=== PATIENT | female | born 1945 | race Caucasian/White ===

== ENCOUNTER → 2017-01-13 | Outpatient (CLI) | payer OTHER, BC ==
[~2017-01-13] MED LIST: ARTISOL12 OPR
--- NOTE | 2017-01-13 15:33 | MAMMOGRAPHY REPORT ---
BILATERAL DIGITAL SCREENING MAMMOGRAM WITH CAD: 01/13/2017 CLINICAL HISTORY: Routine screening. Patient has no complaints. TECHNIQUE: Bilateral CC and MLO views were obtained. Current study was also evaluated with a Comput er Aided Detection (CAD) system. COMPARISON: Comparison is made to exams dated: 12/23/2015 mammogram, 01/13/2011 mammogram, 01/20/2011 ma mmogram - [facility], and 11/18/2007 mammogram - [facility]. BREAST COMPOSITION: There are scattered areas of fibroglandular density in both breasts. FINDINGS: There are stable benign-appearing calcifications within the right breast. No new suspici ous mass, architectural distortion or cluster of suspicious microcalcifications is seen. IMPRESSION: ACR BI-RADS CATEGORY 1: NEGATIVE There is no mammographic evidence of malignancy. A 1 year screening mammogram is recommended. The p atient will receive written notification of the results. Approximately 10% of breast cancers are not detected with mammography. A negative mammographic repor t should not delay biopsy if a clinically suggestive mass is present. Elida Cruz M.D. ay/:01/13/2017 14:51:06 Internal Consultant: Hema Garcia RT(R)(M), [facility] letter sent: Normal 1/2 BI-RADS Code: ACR BI-RADS Category 1: Negative
== END | disposition home or self-care (01) ==
LOC: C.MAMM 13:49
PROVIDERS: ATTEND Family Medicine
DX: Z12.31 Encounter for screening mammogram for malignant neoplasm of breast (principal)

== ENCOUNTER → 2018-03-15 | Outpatient (CLI) | payer OTHER, BC ==
--- NOTE | 2018-03-16 15:30 | MAMMOGRAPHY REPORT ---
BILATERAL DIGITAL SCREENING MAMMOGRAM TOMOSYNTHESIS WITH CAD: 03/15/2018 CLINICAL HISTORY: Routine screening. Patient has no complaints. TECHNIQUE: Breast tomosynthesis in addition to standard 2D mammography was performed. Current study was also evaluated with a Computer Aided Detection (CAD) system. COMPARISON: Comparison is made to exams dated: 01/13/2017 mammogram, 12/23/2015 mammogram, 01/20/2011 [facility] mogram, 01/13/2011 mammogram - [facility], and 11/18/2007 mammogram - [facility] Daniela Harris. BREAST COMPOSITION: There are scattered areas of fibroglandular density in both breasts. FINDINGS: The parenchymal pattern is unchanged. No developing mass, architectural distortion or clus ter of suspicious microcalcifications is seen in either breast. IMPRESSION: ACR BI-RADS CATEGORY 2: BENIGN There is no mammographic evidence of malignancy. A 1 year screening mammogram is recommended. The pa tient will receive written notification of the results. Approximately 10% of breast cancers are not detected with mammography. A negative mammographic report should not delay biopsy if a clinically suggestive mass is present. Elida Cruz M.D. ay/:03/15/2018 14:41:25 Sheep Farm Manager: Michelle BELL(Marly)(Samara), [facility] letter sent: Normal 1/2 BI-RADS Code: ACR BI-RADS Category 2: Benign
== END | disposition home or self-care (01) ==
LOC: C.MAMM 14:07
PROVIDERS: ATTEND Physician Assistant
DX: Z12.31 Encounter for screening mammogram for malignant neoplasm of breast (principal); M81.0 Age-related osteoporosis without current pathological fracture; M85.851 Other specified disorders of bone density and structure, right thigh

== ENCOUNTER 2022-05-04 11:14 | Observation (INO) ==
--- NOTE | 2022-05-04 11:25 | Emergency Department Note ---
Impression & Plan Lateral rectus palsy, Diplopia ED Provider Note NAME: REX HERRERA AGE: 76 SEX: F : 1945 ARRIVES VIA: Walk-In INFORMANT: [Patient][, ] ED PROVIDER(S): [Keven Garcia MD] Chief Complaint: Double vision HPI: Presents due to concern for double vision which she noticed yesterday. The patient believes that it is a horizontal diplopia cytocide images when looking to the right but is not apparent when looking to the left. Patient has any fevers or chills. The patient had mentioned in triage an occasional headache but states that this is not atypical or abnormal. The patient has no headache at this time. The patient denies any strokelike symptoms including numbness tingling focal weakness slurred speech facial droop or otherwise. The patient does have a prior history of cataract lens replacement. The patient is not seen the doll dresser in several years. Patient did not notice improvement in symptoms over the last day and thus presented here for further evaluation treatment. The patient denies any eye pain. The patient denies any blurry vision. Patient Nuys any fevers chills chest pains shortness of breath nausea or vomiting. ROS: See HPI for pertinent positives and negatives. A total of 10 systems were reviewed and otherwise negative. Past medical history: See below Surgical history: See below Social history: See below Physical Exam: GENERAL: NAD, [wearing a mask,] non-toxic. EYE EXAM: Normal conjunctiva. PERRL, no anisocoria and EOM's grossly intact w/o pain. Initially a very subtle right lateral gaze palsy, diplopia that is horizontal in nature when only looking to the right but disappears as she moves left of the midline, no obvious proptosis or periorbital edema, no hyphema or hypopyon. 20/70 vision in the left, 20/25 vision in the right. NECK: Supple, no nuchal rigidity, no adenopathy, non-tender. No signs of meningismus. LUNGS: Clear to auscultation. Normal chest wall mechanics. HEART: NSR, no MRG. ABDOMEN: Abdomen soft, non-tender, normo-active bowel sounds, no masses, no rebound or guarding. BACK: No CVA TTP. SKIN: No rashes and no bruising. UPPER EXTREMITIES: Upper extremities are grossly normal. LOWER EXTREMITIES: Grossly normal, no edema. NEURO EXAM: A&O x3, cranial nerves II-XII grossly intact, normal speech, moves all 4 extremities on command w/o issue. Differential diagnoses: Infection, dehydration, metabolic abnormality, hypo/h yperglycemia, electrolyte disturbance, anemia, hypoxia, cardiac sources, intracerebral event, toxicologic, neurologic, as well as other pathologies. Course: Patient was seen and evaluated the bedside. Full history physical exam was performed. [EKG interpreted by me] Normal sinus rhythm, rate of 74, normal intervals, normal axis, T wave version lead III. No A. fib. Imaging Studies: See Below [Cardiac monitoring: An order was placed for continuous cardiac monitoring. The monitor shows a rate of 82 with sinus rhythm.] MDM: Patient was seen due to concern for double vision. Blood work is obtained along with CT head and CT angiography head neck. Patient's blood work shows a normal white count H&H and platelet count. The patient's kidney function is unremarkable. Patient's LFTs are unremarkable. EKG with no obvious signs of arrhythmia. CT head and CT angiography of head and neck are negative. I did speak with the on-call neurologist Dr. Quach who recommended aspirin MRI brain and admission for stroke rule out. I did speak the on-call hospitalist PEEWEE Urrutia and the patient was admitted by Dr. Zhang. Past Med/Surg History Medical History Ricks's palsy History of basal cell carcinoma Osteoporosis declines Rx Surgical History H/O total knee replacement H/O tubal ligation History of cataract surgery History of wisdom tooth extraction S/P Mohs surgery for basal cell carcinoma Family History Father Diabetes Lung disease Prostate cancer Mother Gallbladder disease Denies family history of Ovarian cancer Myocardial infarction Breast cancer Colorectal cancer Social History Smoking Status: Never smoker Second Hand Exposure: No; Hx Alcohol Use: Yes Alcohol type: hard liquor Alcohol Intake Frequency: Monthly or Less Hx Substance Use: No Preferred Language: Eritrean Communication Ability: Effective Visual Impairment: No Limitations Hearing Ability: Normal Tower Control Operator Required: No marital status: Single Current Living Situation: Alone current occupational status: retired current occupation: radiography technician. Feels Safe at Home: Yes Childhood Exposure to Second-Hand Smoke: Yes caffeine: Yes (1/2 cup in AM) during the past year weight has: remained stable Dental Care, Regularly: Yes Physical Activity Frequency: Daily Physical Activity Frequency Comment: farm work Seatbelt Use: never Sunscreen Use: No Allergies Allergies Allergy/AdvReac Type Severity Reaction Status Date / Time No Known Allergies Allergy Verified 04/07/22 08:20 Home Meds Home Medications Medication Instructions Recorded Confirmed cholecalciferol (vitamin D3) 50 2,000 units PO DAILY 09/04/19 04/07/22 mcg (2,000 unit) capsule Results & Data (ED) Vital Signs Vital Signs - 24 hr 05/04/22 11:16 05/04/22 11:36 05/04/22 13:14 Temperature 36.1 C L Temperature Source Temporal Artery Scan Pulse Rate 77 Pulse Rate [Finger] 78 76 Respiratory Rate 18 18 19 Respiratory Effort / Characteristics Non-Labored Respiratory Depth Normal Blood Pressure 191/111 H Blood Pressure [Left Arm] 177/107 H 183/109 H Blood Pressure Mean 137 Blood Pressure Mean [Left Arm] 130 133 Pulse Oximetry 97 99 97 Oxygen Delivery Method Room Air Room Air Room Air Sepsis Recent Fever Within 48 Hours No Sepsis New/Unexplained Change in Mental Status No Sepsis Action Taken by Nursing No Action Required 05/04/22 14:00 Temperature Temperature Source Pulse Rate Pulse Rate [Finger] 64 Respiratory Rate 17 Respiratory Effort / Characteristics Respiratory Depth Blood Pressure Blood Pressure [Left Arm] 179/87 H Blood Pressure Mean Blood Pressure Mean [Left Arm] 117 Pulse Oximetry 99 Oxygen Delivery Method Sepsis Recent Fever Within 48 Hours Sepsis New/Unexplained Change in Mental Status Sepsis Action Taken by [facility] Medications Current Medication List: was personally reviewed by me Laboratory Data Attestation: I reviewed the patient's lab results. Result diagrams: 05/04/22 11:33 05/04/22 11:33 Lab Results 05/04/22 05/04/22 05/04/22 Range/Units 11:33 11:33 11:33 WBC 6.75 (4.8-10.8) K/uL RBC 4.87 (4.2-5.4) M/uL Hgb 13.3 (12.0-16.0) g/dL Hct 40.9 (37-47) % MCV 84.0 (80-100) fL MCH 27.3 (25-34) pg MCHC 32.5 (32-36) g/dL RDW Std Deviation 52.5 H (36.4-46.3) fL RDW Coeff of Vickie 16.9 H (11.5-14.5) % Plt Count 295 (130-400) K/uL MPV 9.6 (7.4-10.4) fL Immature Gran % (Auto) 0.3 % Neut % (Auto) 65.8 % Lymph % (Auto) 27.4 % Schuyler % (Auto) 5.9 % Eos % (Auto) 0.6 % Baso % (Auto) 0.0 % Neut # (Auto) 4.44 (1.4-6.5) K/uL Lymph # (Auto) 1.85 (1.2-3.4) K/uL Schuyler # (Auto) 0.40 (0.11-0.59) K/uL Eos # (Auto) 0.04 (0-0.5) K/uL Baso # (Auto) 0.00 (0-0.2) K/uL Immature Gran # (Auto) 0.02 (0.00-0.02) K/uL APTT 26.0 (21.0-31.0) Seconds PTT Ratio 0.9 Sodium 136 (136-145) mmol/L Potassium 4.1 (3.5-5.1) mmol/L Chloride 105 (98-107) mmol/L Carbon Dioxide 25 (21-32) mmol/L Anion Gap 6 (3-11) BUN 20 (6-23) mg/dl Creatinine 1.01 (0.6-1.2) mg/dl Est Cr Clr Drug Dosing 45.9 ml/min Est GFR ( Amer) 63.1 ml/min Est GFR (Non-Af Amer) 54.4 ml/min BUN/Creatinine Ratio 19.8 (10-20) Glucose 99 (70-99(Fasting)) mg/dl Calcium 9.6 (8.5-10.1) mg/dl Magnesium 2.0 (1.7-2.4) mg/dl Total Bilirubin 0.9 (0.2-1.0) mg/dl AST 13 (13-39) U/L ALT 9 (7-52) U/L Alkaline Phosphatase 65 (34-104) U/L Troponin I High Sens 3.4 (0-14) pg/ml Total Protein 7.2 (6.0-8.3) gm/dl Albumin 4.1 (3.4-5.0) gm/dl Globulin 3.1 (2.5-4.0) gm/dl Albumin/Globulin Ratio 1.3 (0.9-2) SARS-CoV-2, RNA, NAAT (NEGATIVE) 05/04/22 Range/Units 14:16 WBC (4.8-10.8) K/uL RBC (4.2-5.4) M/uL Hgb (12.0-16.0) g/dL Hct (37-47) % MCV (80-100) fL MCH (25-34) pg MCHC (32-36) g/dL RDW Std Deviation (36.4-46.3) fL RDW Coeff of Vickie (11.5-14.5) % Plt Count (130-400) K/uL MPV (7.4-10.4) fL Immature Gran % (Auto) % Neut % (Auto) % Lymph % (Auto) % Schuyler % (Auto) % Eos % (Auto) % Baso % (Auto) % Neut # (Auto) (1.4-6.5) K/uL Lymph # (Auto) (1.2-3.4) K/uL Schuyler # (Auto) (0.11-0.59) K/uL Eos # (Auto) (0-0.5) K/uL Baso # (Auto) (0-0.2) K/uL Immature Gran # (Auto) (0.00-0.02) K/uL APTT (21.0-31.0) Seconds PTT Ratio Sodium (136-145) mmol/L Potassium (3.5-5.1) mmol/L Chloride (98-107) mmol/L Carbon Dioxide (21-32) mmol/L Anion Gap (3-11) BUN (6-23) mg/dl Creatinine (0.6-1.2) mg/dl Est Cr Clr Drug Dosing ml/min Est GFR ( Amer) ml/min Est GFR (Non-Af Amer) ml/min BUN/Creatinine Ratio (10-20) Glucose (70-99(Fasting)) mg/dl Calcium (8.5-10.1) mg/dl Magnesium (1.7-2.4) mg/dl Total Bilirubin (0.2-1.0) mg/dl AST (13-39) U/L ALT (7-52) U/L Alkaline Phosphatase (34-104) U/L Troponin I High Sens (0-14) pg/ml Total Protein (6.0-8.3) gm/dl Albumin (3.4-5.0) gm/dl Globulin (2.5-4.0) gm/dl Albumin/Globulin Ratio (0.9-2) SARS-CoV-2, RNA, NAAT NEGATIVE (NEGATIVE) Administered Medications Discontinued Medications Aspirin (Aspirin Chew 324 Mg) 81 mg PO NOW STA Stop: 05/04/22 14:15 Last Admin: 05/04/22 14:21 Dose: 81 mg Documented by: [id number] Ioversol (Optiray 320 125ml) 120 ml IV ONCE ONE Stop: 05/04/22 12:41 Last Admin: 05/04/22 12:41 Dose: 120 ml Documented by: [id number] Imaging Data Radiologist's Impression: Head CT 05/04/22 11:41 CT head/brain wo con CLINICAL HISTORY: Stroke Like Symptoms . Double vision COMPARISON STUDY: No previous studies for comparison. CT DOSE: TECHNIQUE: Standard CT of the Brain was performed without IV contrast. A dose lowering technique was utilized adhering to the principles of ALARA. FINDINGS: Extraaxial space: There is no evidence for subdural hematoma. There are no extra-axial fluid collections. Ventricles and cisterns: The ventricles are normal in size and configuration. There is no evidence for midline shift or mass effect. Parenchyma: There is no subarachnoid or intraparenchymal hemorrhage. There is no evidence for an acute infarct or cerebral edema. There is homogeneous attenuati on of the brain parenchyma. There are no gross mass lesions. Osseous structures: There is no evidence for an acute fracture. The visualized paranasal sinuses are clear. The mastoid air cells are clear bilaterally. Soft tissues: There is no evidence for focal soft tissue swelling. IMPRESSION: 1. No acute intracerebral pathology. ACT 112: Negative or not required by law. Electronically signed by: Danny Lopez M.D. 05/04/2022 12:53 PM Head CTA 05/04/22 11:41 CT angio head w con CLINICAL HISTORY: Stroke Like Symptoms TECHNIQUE: CT angiography of the head was performed following intravenous administration of iodinated contrast. Coronal and sagittal MIPS were obtained from the axial data set and were submitted for review. Automated dose lowering techniques and/or adjustment according to patient size were utilized for this examination. All measurements were calculated based on NASCET criteria. Comparison: None available at the time of this dictation. FINDINGS: CTA Head: The anterior and posterior cerebral circulations are patent. No hemodynamically significant stenosis, aneurysm, dissection, or arteriovenous malformation is shown. origin of the bilateral posterior cerebral arteries noted. IMPRESSION: No occlusion, hemodynamically significant stenosis, aneurysm, dissection, or arteriovenous malformation in the major intracranial arteries. Assessment of stenosis of the internal carotid arteries is based on NASCET criteria. ACT 112: Negative or not required by law. Electronically signed by: Vincent Palacio M.D. 05/04/2022 1:03 PM Neck CTA 05/04/22 11:41 CT ANGIOGRAPHY OF THE NECK WITH CONTRAST CLINICAL HISTORY: Stroke Like Symptoms. Double vision. COMPARISON STUDY: No previous studies for comparison. Technique: CT angiography of the carotid and vertebral arteries was obtained using Optiray and 3D reconstruction on an independent workstation. NASCET criteria was utilized. Automated exposure control was utilized for the study. A dose lowering technique was utilized adhering to the principles of ALARA. CT DOSE: 1145.44 mGy.cm Findings: Visualized portions of the lung apices are unremarkable. There is no cervical lymphadenopathy. No acute cervical spine fracture is noted. Moderate noncalcified plaque within the proximal left subclavian artery results in mild stenosis. The bilateral common carotid, cervical internal carotid and vertebral arteries are patent. No stenosis or dissection within these vessels is present. The left vertebral artery is dominant. There is no aneurysm within the neck. CTA of the head will be reported separately. IMPRESSION: No stenosis or dissection within the bilateral common carotid, cervical internal carotid or vertebral arteries. ACT 112: Negative or not required by law. Electronically signed by: Michael Maddox M.D. 05/04/2022 12:54 PM Discharge Plan Visit Data Chief Complaint: Visual Disturbance Stated Complaint: DOUBLE VISION ED Provider: Keven Garcia Discharge Problem: Lateral rectus palsy, Diplopia Patient Disposition: Admitted As Inpatient [facility] Prescriptions Prescriptions: No Action cholecalciferol (vitamin D3) 2,000 unit capsule 2,000 units PO DAILY RF: 0 Referrals Referrals: Haley Maddox MD [Primary Care Provider] -
[2022-05-04 11:58] LABS: Eosinophils # (auto) 0.04 K/uL (0-0.5); Eosinophils % (auto) 0.6 %; Hematocrit (blood only) 40.9 % (37-47); Hemoglobin 13.3 g/dL (12.0-16.0); Immature Granulocytes # (auto) 0.02 K/uL (0.00-0.02); Immature Granulocytes % (auto) 0.3 %; Lymphocytes # (auto) 1.85 K/uL (1.2-3.4); Lymphocytes % (auto) 27.4 %; Mean Corpuscular Hemoglobin 27.3 pg (25-34); Mean Corpuscular Hgb Conc 32.5 g/dL (32-36); Mean Platelet Volume 9.6 fL (7.4-10.4); Monocytes % (auto) 5.9 %; Neutrophils # (auto) 4.44 K/uL (1.4-6.5); Neutrophils % (auto) 65.8 %; Platelet Count 295 K/uL (130-400); RDW Coefficient of Variation 16.9 % (11.5-14.5); RDW Standard Deviation 52.5 fL (36.4-46.3); Red Blood Count 4.87 M/uL (4.2-5.4); White Blood Count 6.75 K/uL (4.8-10.8)
[2022-05-04 12:05] LABS: Partial Thromboplastin Ratio 0.9
[2022-05-04 12:15] LABS: Albumin Globulin Ratio 1.3 (0.9-2); Albumin Level 4.1 gm/dl (3.4-5.0); BUN Creatinine Ratio 19.8 (10-20); Bilirubin,Total 0.9 mg/dl (0.2-1.0); Calcium 9.6 mg/dl (8.5-10.1); Creatinine Clr Calc Pharmacy 45.9 ml/min; Est GFR (African American) 63.1 ml/min; Est GFR (Non-African American) 54.4 ml/min; Globulin 3.1 gm/dl (2.5-4.0); Potassium 4.1 mmol/L (3.5-5.1); Total Protein 7.2 gm/dl (6.0-8.3)
[2022-05-04 12:19] LABS: Troponin I High Sensitivity 3.4 pg/ml (0-14)
[2022-05-04] MEDS ORDERED: OPTIRAY 320 125ml IV ONE (12:40)
--- NOTE | 2022-05-04 12:55 | CT Scan Report ---
CT head/brain wo con CLINICAL HISTORY: Stroke Like Symptoms . Double vision COMPARISON STUDY: No previous studies for comparison. CT DOSE: TECHNIQUE: Standard CT of the Brain was performed without IV contrast. A dose lowering technique was utilized adhering to the principles of ALARA. FINDINGS: Extraaxial space: There is no evidence for subdural hematoma. There are no extra-axial fluid collecti ons. Ventricles and cisterns: The ventricles are normal in size and configuration. There is no evidence fo r midline shift or mass effect. Parenchyma: There is no subarachnoid or intraparenchymal hemorrhage. There is no evidence for an acut e infarct or cerebral edema. There is homogeneous attenuation of the brain parenchyma. There are no g ross mass lesions. Osseous structures: There is no evidence for an acute fracture. The visualized paranasal sinuses are clear. The mastoid air cells are clear bilaterally. Soft tissues: There is no evidence for focal soft tissue swelling. IMPRESSION: 1. No acute intracerebral pathology. ACT 112: Negative or not required by law. Electronically signed by: Danny Lopez M.D. 05/04/2022 12:53 PM
--- NOTE | 2022-05-04 12:56 | CT Scan Report ---
CT ANGIOGRAPHY OF THE NECK WITH CONTRAST CLINICAL HISTORY: Stroke Like Symptoms. Double vision. COMPARISON STUDY: No previous studies for comparison. Technique: CT angiography of the carotid and vertebral arteries was obtained using Optiray and 3D rec onstruction on an independent workstation. NASCET criteria was utilized. Automated exposure control was utilized for the study. A dose lowering technique was utilized adhering to the principles of ALA RA. CT DOSE: 1145.44 mGy.cm Findings: Visualized portions of the lung apices are unremarkable. There is no cervical lymphadenopat hy. No acute cervical spine fracture is noted. Moderate noncalcified plaque within the proximal left subclavian artery results in mild stenosis. The bilateral common carotid, cervical internal carotid a nd vertebral arteries are patent. No stenosis or dissection within these vessels is present. The left vertebral artery is dominant. There is no aneurysm within the neck. CTA of the head will be reported separately. IMPRESSION: No stenosis or dissection within the bilateral common carotid, cervical internal carotid or vertebral arteries. ACT 112: Negative or not required by law. Electronically signed by: Michael Maddox M.D. 05/04/2022 12:54 PM
--- NOTE | 2022-05-04 13:04 | CT Scan Report ---
CT angio head w con CLINICAL HISTORY: Stroke Like Symptoms TECHNIQUE: CT angiography of the head was performed following intravenous administration of iodinated contrast. Coronal and sagittal MIPS were obtained from the axial data set and were submitted for rev iew. Automated dose lowering techniques and/or adjustment according to patient size were utilized fo r this examination. All measurements were calculated based on NASCET criteria. Comparison: None available at the time of this dictation. FINDINGS: CTA Head: The anterior and posterior cerebral circulations are patent. No hemodynamically significan t stenosis, aneurysm, dissection, or arteriovenous malformation is shown. origin of the bilater al posterior cerebral arteries noted. IMPRESSION: No occlusion, hemodynamically significant stenosis, aneurysm, dissection, or arteriovenous malformati on in the major intracranial arteries. Assessment of stenosis of the internal carotid arteries is based on NASCET criteria. ACT 112: Negative or not required by law. Electronically signed by: Vincent Palacio M.D. 05/04/2022 1:03 PM
[2022-05-04] MEDS ORDERED: ASPIRIN CHEW 324 MG PO STA (14:14)
--- NOTE | 2022-05-04 15:38 | History & Physical Report ---
Date of Service May 04, 2022 Assessment & Plan (1) Diplopia: Plan: CVA vs. palsy/ right gaze diplopia vs. TIA - CTA of the head and neck performed - negative for any carotid disease or aneurysm - MRI pending - ECHO with bubble study - ASA 324mg given by EMD- 81 mg daily - lipid panel in the morning - therapy based on lipid panel and above - appreciate Neurology recommendations - HGB A1C in am - Allow for permissive HTN if CVA diagnosed (2) Osteoporosis: Plan: Continue with cholecalciferol/Vitamin D3) History of Present Illness Primary Care Provider: Haley Maddox MD 76 YOF with medical history of: Osteopetrosis and knee replacement, cataract surgery, on cholecalciferol/Vitamin D3(previously on Fosamax stopped secondary to side effects, and basal cell carcinoma and Ricks's Palsy (2013). Patient comes to the EMD today for 2 day history of "double vision". Patient states th at she awoke yesterday (05/03/22) in the morning with double vision. This was painless and not associated with any other pain or numbness/tingling or weakness. Patient states that she has double vision on the left and straight ahead of her, but normal when she is looking to the left as well as no change with covering either of her eyes. She is up to date on her other screenings with mammography and planned upcoming Colonoscopy. She reports herself as being active and no change in her ability to function at home. In the EMD the patient had routine labs performed, CTA of the head and neck, CT head, CXR, and ECG performed. She was given dose of 324 mg ASA. MRI is ordered and pending. Patient will be admitted for observation and continuation workup of CVA with MRI, ECHO, continuation ASA and lipid panel with HGB A1C. COVID test: NEGATIVE Allergies Allergy/AdvReac Type Severity Reaction Status Date / Time No Known Allergies Allergy Verified 05/04/22 15:26 Home Medications Medication Instructions Recorded Confirmed Type cholecalciferol (vitamin D3) 50 2,000 units PO DAILY 09/04/19 04/07/22 History mcg (2,000 unit) capsule Past Med/Surg History Medical History Ricks's palsy History of basal cell carcinoma Osteoporosis declines Rx Surgical History H/O total knee replacement H/O tubal ligation History of cataract surgery History of wisdom tooth extraction S/P Mohs surgery for basal cell carcinoma Family History Father Diabetes Lung disease Prostate cancer Mother Gallbladder disease Denies family history of Ovarian cancer Myocardial infarction Breast cancer Colorectal cancer Social History Smoking Status: Never smoker Second Hand Exposure: No; Hx Alcohol Use: Yes Alcohol type: hard liquor Alcohol Intake Frequency: Monthly or Less Hx Substance Use: No Preferred Language: Gambian Communication Ability: Effective Visual Impairment: No Limitations Hearing Ability: Normal Vocational Rehabilitation Specialist Required: No marital status: Single Current Living Situation: Alone current occupational status: 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 Feels Safe at Home: Yes Childhood Exposure to Second-Hand Smoke: Yes caffeine: Yes (1/2 cup in AM) during the past year weight has: remained stable Dental Care, Regularly: Yes Physical Activity Frequency: Daily Physical Activity Frequency Comment: farm work Seatbelt Use: never Sunscreen Use: No Review of Systems Review of Systems: REVIEW OF SYSTEMS: Constitutional: No fever, sweats or chills Eyes: (+) diplopia, no worsening or blurred vision ENT: normal hearing, no trouble swallowing Respiratory: No cough, sputum, dyspnea at rest or on exertion Cardiovascular: No chest pain, tightness or palpitations Abdomen: No pain, nausea, vomiting, diarrhea or constipation Musculoskeletal: No joint pain, calf pain, swelling Neurologic: No weakness, numbness/tingling, or balance problems Psychiatric: No anxiety or depression Skin: No rash or itch Physical Exam Physical Exam: PHYSICAL EXAM: General: awake, alert, no apparent distress Head: Normocephalic, atraumatic ENT:, no pharyngeal exudate, mucous membranes moist Neuro: AAO x 3, speech clear and appropriate, PERRLA, EOMI intact, strength intact bilaterally 5/5, sensation intact and equal all extremities and dermatomes, no pronator drift - double vision with rightward vision and straight forward- preserved on left. With unilateral vision patient sees one object (loss of double vision), her peripheral vision remains intact, EOM are intact with out any lag with covering and uncovering, nystagmus present with covering and uncovering following lateral movements. No gaze preference appreciated. Chest: equal rise and fall of the chest, no accessory muscle use, no heaves or thrills, Clear to auscultation, on room air, Cardiac: Regular rate and rhythm, telemetry reviewed-NSR, skin warm dry, cap refill <3 seconds, peripheral pulses +2 no JVD, no murmur, no JVD, no edema GI: NABS x 4 quadrants, soft, nontender to palpation, no rebound, guarding or tenderness : Spontaneously voiding, no pain, no CVA tenderness, Extremities: Normal inspection, no peripheral edema or erythema, calfs nontender to palpation Psych: Normal mood and affect Skin: no rash or erythema Results & Data Results & Data ([facility]) Vital Signs (Past 12 Hours) Vital Signs Temp Pulse Pulse Resp BP BP Pulse Ox 05/04/22 14:00 64 17 179/87 H 99 05/04/22 13:14 76 19 183/109 H 97 05/04/22 11:36 78 18 177/107 H 99 05/04/22 11:16 36.1 C L 77 18 191/111 H 97 Laboratory Results Abnormal lab results 05/04/22 Range/Units 11:33 RDW Std Deviation 52.5 H (36.4-46.3) fL RDW Coeff of Vickie 16.9 H (11.5-14.5) % Diagnostic Findings Head CT 05/04/22 11:41 CT head/brain wo con CLINICAL HISTORY: Stroke Like Symptoms . Double vision COMPARISON STUDY: No previous studies for comparison. CT DOSE: TECHNIQUE: Standard CT of the Brain was performed without IV contrast. A dose lowering technique was utilized adhering to the principles of ALARA. FINDINGS: Extraaxial space: There is no evidence for subdural hematoma. There are no extra-axial fluid collections. Ventricles and cisterns: The ventricles are normal in size and configuration. There is no evidence for midline shift or mass effect. Parenchyma: There is no subarachnoid or intraparenchymal hemorrhage. There is no evidence for an acute infarct or cerebral edema. There is homogeneous attenuation of the brain parenchyma. There are no gross mass lesions. Osseous structures: There is no evidence for an acute fracture. The visualized paranasal sinuses are clear. The mastoid air cells are clear bilaterally. Soft tissues: There is no evidence for focal soft tissue swelling. IMPRESSION: 1. No acute intracerebral pathology. ACT 112: Negative or not required by law. Electronically signed by: Danny Lopez M.D. 05/04/2022 12:53 PM Head CTA 05/04/22 11:41 CT angio head w con CLINICAL HISTORY: Stroke Like Symptoms TECHNIQUE: CT angiography of the head was performed following intravenous administration of iodinated contrast. Coronal and sagittal MIPS were obtained from the axial data set and were submitted for review. Automated dose lowering techniques and/or adjustment according to patient size were utilized for this examination. All measurements were calculated based on NASCET criteria. Comparison: None available at the time of this dictation. FINDINGS: CTA Head: The anterior and posterior cerebral circulations are patent. No hemodynamically significant stenosis, aneurysm, dissection, or arteriovenous malformation is shown. origin of the bilateral posterior cerebral arteries noted. IMPRESSION: No occlusion, hemodynamically significant stenosis, aneurysm, dissection, or arteriovenous malformation in the major intracranial arteries. Assessment of stenosis of the internal carotid arteries is based on NASCET criteria. ACT 112: Negative or not required by law. Electronically signed by: Vincent Palacio M.D. 05/04/2022 1:03 PM Neck CTA 05/04/22 11:41 CT ANGIOGRAPHY OF THE NECK WITH CONTRAST CLINICAL HISTORY: Stroke Like Symptoms. Double vision. COMPARISON STUDY: No previous studies for comparison. Technique: CT angiography of the carotid and vertebral arteries was obtained using Optiray and 3D reconstruction on an independent workstation. NASCET criteria was utilized. Automated exposure control was utilized for the study. A dose lowering technique was utilized adhering to the principles of ALARA. CT DOSE: 1145.44 mGy.cm Findings: Visualized portions of the lung apices are unremarkable. There is no cervical lymphadenopathy. No acute cervical spine fracture is noted. Moderate noncalcified plaque within the proximal left subclavian artery results in mild stenosis. The bilateral common carotid, cervical internal carotid and vertebral arteries are patent. No stenosis or dissection within these vessels is present. The left vertebral artery is dominant. There is no aneurysm within the neck. CTA of the head will be reported separately. IMPRESSION: No stenosis or dissection within the bilateral common carotid, cervical internal carotid or vertebral arteries. ACT 112: Negative or not required by law. Electronically signed by: Michael Maddox M.D. 05/04/2022 12:54 PM Medications Administered Home Medications cholecalciferol (vitamin D3) 50 mcg (2,000 unit) capsule 2,000 units PO DAILY 09/04/19 [History Confirmed 04/07/22] Discontinued Medications Aspirin (Aspirin Chew 324 Mg) 81 mg PO NOW STA Stop: 05/04/22 14:15 Last Admin: 05/04/22 14:21 Dose: 81 mg Documented by: [id number] Ioversol (Optiray 320 125ml) 120 ml IV ONCE ONE Stop: 05/04/22 12:41 Last Admin: 05/04/22 12:41 Dose: 120 ml Documented by: [id number] Additional Comments: Normal sinus rhythm Cannot rule out Anterior infarct , age undetermined Abnormal ECG No previous ECGs available Code Status & VTE Plan Code Status CODE: FULL VTE: SCDS, Lovenox 40mg subq daily VTE Prophylaxis Plan VTE Prophylaxis will be ordered: Yes PG Care Time/CCT Total # of Minutes Spent Total Time Spent with Patient: Total time spent is greater than 50% in coordination of care (as documented) at patient's floor/unit and/or counseling patient: Coding Level of Care Code INT OBSERVATION CARE 50M LVL 2 Diagnoses Diplopia H53.2 Osteoporosis M81.0
--- NOTE | 2022-05-04 16:51 | Magnetic Resonance Report ---
MRI OF THE BRAIN WITHOUT IV CONTRAST CLINICAL HISTORY: Diplopia. Right lateral gaze palsy. COMPARISON STUDY: CT of the brain dated 05/04/2022. TECHNIQUE: MRI of the brain was performed utilizing various T1 and T2-weighted sequences in the axial , sagittal, and coronal planes. IV contrast was not administered for this examination. FINDINGS: Brain parenchyma: There is age-related involutional change noting mild subcortical and periventricula r microangiopathic disease. There is no hemorrhage or mass effect. There is no restricted diffusion t o suggest acute ischemia. Jiang-white matter differentiation is preserved. No extra-axial fluid collec tion is seen. The cerebellar tonsils are normal in configuration. Ventricles, sulci, and cisterns: Prominent secondary to involutional change. Pituitary and sella: Unremarkable. Intracranial vasculature: Normal flow voids are maintained at the skull base. Orbits: The bony orbits are grossly intact. Orbital contents are normal in appearance noting bilatera l ocular lens implants. Sinuses and mastoids: Clear. Calvarium: Unremarkable. Cervical cord: Partially visualized cervical spinal cord is normal in morphology and signal intensity . IMPRESSION: No acute intracranial abnormality. ACT 112: Negative or not required by law. Electronically signed by: El Gallo M.D. 05/04/2022 4:49 PM
[2022-05-04] MEDS ORDERED: PHARMACIST DISCHARGE MED REC CONSULT PRN (17:56)
[2022-05-04] MEDS ORDERED: ACETAMINOPHEN 325 MG TAB PO PRN (17:56)
--- NOTE | 2022-05-04 18:46 | Electrocardiogram Report ---
Test Reason : Blood Pressure : / mmHG Vent. Rate : 074 BPM Atrial Rate : 074 BPM P-R Int : 162 ms QRS Dur : 068 ms QT Int : 382 ms P-R-T Axes : 031 007 014 degrees QTc Int : 424 ms Normal sinus rhythm No previous ECGs available Confirmed by Kirk Amaro ([id number]) on 05/04/2022 6:45:41 PM Referred By: Haley Maddox Confirmed By:Aramis Amaro
[2022-05-05 06:57] LABS: Basophils # (auto) 0.01 K/uL (0-0.2); Basophils % (auto) 0.2 %; Eosinophils % (auto) 1.9 %; Hematocrit (blood only) 41.1 % (37-47); Hemoglobin 13.4 g/dL (12.0-16.0); Immature Granulocytes # (auto) 0.01 K/uL (0.00-0.02); Immature Granulocytes % (auto) 0.2 %; Lymphocytes % (auto) 34.7 %; Mean Corpuscular Hemoglobin 27.5 pg (25-34); Mean Corpuscular Hgb Conc 32.6 g/dL (32-36); Mean Corpuscular Volume 84.4 fL (80-100); Mean Platelet Volume 9.7 fL (7.4-10.4); Monocytes # (auto) 0.33 K/uL (0.11-0.59); Monocytes % (auto) 6.4 %; Neutrophils # (auto) 2.93 K/uL (1.4-6.5); Neutrophils % (auto) 56.6 %; Platelet Count 269 K/uL (130-400); RDW Coefficient of Variation 16.9 % (11.5-14.5); RDW Standard Deviation 52.5 fL (36.4-46.3); Red Blood Count 4.87 M/uL (4.2-5.4); White Blood Count 5.18 K/uL (4.8-10.8)
[2022-05-05 07:35] LABS: BUN Creatinine Ratio 21.8 (10-20); Calcium 9.5 mg/dl (8.5-10.1); Chol HDL Ratio 3.5 (0-5); Creatinine Clr Calc Pharmacy 47.2 ml/min; Est GFR (African American) 63.1 ml/min; Est GFR (Non-African American) 54.4 ml/min; Magnesium 2.1 mg/dl (1.7-2.4); Potassium 4.2 mmol/L (3.5-5.1)
[2022-05-05 08:01] LABS: Estimated Average Glucose 117 mg/dl; Hemoglobin A1C 5.7 % (4.5-5.6)
[2022-05-05] MEDS ORDERED: ASPIRIN 81 MG ECTAB PO SCH (09:00)
--- NOTE | 2022-05-05 10:38 | XCELERA ---
[id number]
[2022-05-05] MEDS ORDERED: STROKE PATIENT DISCHARGE STA (12:40)
--- NOTE | 2022-05-05 14:06 | Discharge Summary ---
Date of Service May 05, 2022 Admission HPI Per Admitting Provider 76 YOF with medical history of: Osteopetrosis and knee replacement, cataract surgery, on cholecalciferol/Vitamin D3(previously on Fosamax stopped secondary to side effects, and basal cell carcinoma and Ricks's Palsy (2013). Patient comes to the EMD today for 2 day history of "double vision". Patient states that she awoke yesterday (05/03/22) in the morning with double vision. This was painless and not associated with any other pain or numbness/tingling or weakness. Patient states that she has double vision on the left and straight ahead of her, but normal when she is looking to the left as well as no change w ith covering either of her eyes. She is up to date on her other screenings with mammography and planned upcoming Colonoscopy. She reports herself as being active and no change in her ability to function at home. In the EMD the patient had routine labs performed, CTA of the head and neck, CT head, CXR, and ECG performed. She was given dose of 324 mg ASA. MRI is ordered and pending. Patient will be admitted for observation and continuation workup of CVA with MRI, ECHO, continuation ASA and lipid panel with HGB A1C. COVID test: NEGATIVE Principal Diagnosis Likely right CN 6 palsy Discharge Exam Constitutional WD/WN, vitals as above Eyes no conjunctival abnormality and + EOM not intact (Some mild limitation of right eye abduction) ENMT external ear and nose normal, oropharynx normal Neck trachea midline, no thyromegaly normal visual inspection Respiratory normal respiratory effort, lungs clear to auscultation no respiratory distress Cardiovascular RRR, no murmur, no edema Gastrointestinal (Abdomen) Inspection/Auscultation: abdomen normal to inspection; abdomen not distended Musculoskeletal no cyanosis or clubbing, extremities motor strength 5/5 Skin no rashes, warm and dry Neurologic moves all extremities and awake Psychiatric Orientation: alert, oriented to person and cooperative Discharge Data Allergies Allergy/AdvReac Type Severity Reaction Status Date / Time No Known Allergies Allergy Verified 05/04/22 15:26 Consultations 05/04/22 14:16 ED Decision to Admit Stat 05/04/22 14:56 ED Decision to Admit Stat 05/04/22 17:56 Consult Neurology Routine Ordered Studies 05/04/22 11:41 CT angio head w con Stat CT angio neck with con Stat CT head/brain wo con Stat 05/04/22 14:14 MR brain wo con Stat Hospital Course (1) Diplopia: Likely right CN [address]. Discussed with Dr. Chase and Dr. Janusz Hopkins who will see her in clinic. - CTA of the head and neck performed - negative for any carotid disease or aneurysm - MRI - No CVA - ECHO with bubble study negative. - Lipid panel in the morning - Can consider outpatient statin therapy - HGB A1C was 5.7% - Discharge on ASA 81 mg PO daily. 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 Hopkins in 1-2 weeks for evaluation of your vision.) Diet: Regular Addtl Attending Provider Instructions: Ms. Goss, You were admitted to the hospital with double vision that we were worried was from a stroke. However, our testing shows that you did not have a stroke. We believe your vision issues are caused by a right cranial nerve 6 palsy. We don't see a reason such as trauma or a tumor that is causing this, so it is likely a form of "microvascular" change. I spoke with Dr. Hopkins who would like to see you in his office in 1-2 weeks. Please call to make an appointment. In the meantime, please continue to take baby aspirin (81 mg). Please see your PCP in the next week as well to discuss any issues that arise. Pending Studies at Discharge: No Stand-Alone Forms: My [facility] Medications and DC Order Prescriptions: New aspirin 81 mg Tablet,Delayed Release (Dr/Ec) 81 mg PO QAM Qty: 0 RF: 0 Continued cholecalciferol (vitamin D3) 2,000 unit capsule 2,000 units PO DAILY RF: 0 Discharge Orders: Discharge Order (Routine); Ordered 05/05/22 Ordered By: Gus Skelton Admission Data Admit Date/Time: 05/04/22 15:27 Attending Provider: Gus Skelton Admit Provider: Gurjit Zhang Primary Care Provider: Haley Maddox Other Providers: Gurjit Zhang ; Gus Skelton ; Lewis Chase Other Interventions: Discharge Summary Assessment (RN) Last Done: 05/05/22 12:48 Coding Level of Care Code 16867 OBS Care - Discharge Diagnoses Diplopia H53.2 Osteoporosis M81.0
--- NOTE | 2022-05-05 19:09 | Electrocardiogram Report ---
Test Reason : Blood Pressure : / mmHG Vent. Rate : 072 BPM Atrial Rate : 072 BPM P-R Int : 166 ms QRS Dur : 078 ms QT Int : 404 ms P-R-T Axes : 004 039 048 degrees QTc Int : 442 ms Normal sinus rhythm Normal ECG When compared with ECG of 04-MAY-2022 11:51, No significant change was found Confirmed by Kirk Amaro ([id number]) on 05/05/2022 7:08:57 PM Referred By: Haley Maddox Confirmed By:Aramis Amaro
== END 2022-05-05 13:55 | disposition home or self-care (01) ==
LOC: 2W 11:14 → ED 11:14 → SUATTDRO 15:27 → 2W 16:16